=== PATIENT | female | born 1970 | race American Indian/Alaskan Native ===

== ENCOUNTER 2017-09-18 01:47 | Emergency (ER) | payer MEDICAID ==
[2017-09-18 03:41] LABS: Basophils # (Auto) 0.1 K/mm3 (0.0-0.1); Basophils % (Auto) 0.7 % (0.0-1.8); Eosinophils # (Auto) 0.1 K/mm3 (0.0-0.4); Eosinophils % (Auto) 1.4 % (0.0-4.3); Hematocrit 39.9 % (30.3-42.9); Hemoglobin 13.6 gm/dl (10.1-14.3); Lymphocytes # (Auto) 2.9 K/mm3 (1.2-5.4); Lymphocytes % (Auto) 29.9 % (13.4-35.0); Mean Corpuscular HGB Conc 34 % (30-34); Mean Corpuscular Hemoglobin 32 pg (28-32); Mean Corpuscular Volume 95 fl (79-97); Monocytes % (Auto) 9.9 % (0.0-7.3); Platelet Count 253 K/mm3 (140-440); Red Blood Count 4.22 M/mm3 (3.65-5.03); Red Cell Distribution Width 15.4 % (13.2-15.2)
[2017-09-18 04:02] LABS: Alanine Aminotransferase 51 units/L (7-56); Albumin 4.3 g/dL (3.9-5); BUN/Creatinine Ratio 19; Blood Urea Nitrogen 13 mg/dL (7-17); Calcium 10.8 mg/dL (8.4-10.2); Hemolysis Index 7
--- NOTE | 2017-09-18 06:09 | Emergency Department Report ---
ED General Adult HPI - General Chief complaint: Pain General Stated complaint: NOSE PAIN AND LIGHT HEADED Time Seen by Provider: 09/18/17 06:04 Source: patient Mode of arrival: Ambulatory Limitations: No Limitations - History of Present Illness Initial comments: 47-year-old -[place] female presents to the emergency room for complaint of nose pain 11/07. She reports that she has swelling in the inside of her nose since . She reports she's had lightheadedness since yesterday. Patient denies any injury to the nose denies any nosebleeds. Patient does report that she has difficulty breathing out of one nostril and then it would switch off to the other nostril. Patient has a history of diabetes hypertension depression. Her primary care doctor is Dr. Rene. Patient has not tried any [id number] medications for relief. SHe does admit to headache is located in the frontal between her eyebrows. -: days(s) (3) Location: head Severity scale (0 -10): 9 Quality: stabbing, aching, sharp Consistency: constant Improves with: none Worsens with: none Associated Symptoms: headaches, other (call to breathe through her nose) Treatments Prior to Arrival: none - Related Data Previous Rx's Medication Instructions Recorded Last Taken Type Cephalexin [Keflex] 500 mg PO Q12HR 10 Days #20 cap 09/18/17 Unknown Rx Fluticasone [Flonase] 1 spray NS QDAY #1 bottle 09/18/17 Unknown Rx Loratadine [Claritin] 10 mg PO DAILY #30 tablet 09/18/17 Unknown Rx Allergies Allergy/AdvReac Type Severity Reaction Status Date / Time No Known Allergies Allergy Verified 09/18/17 02:47 ED Review of Systems ROS: Stated complaint: NOSE PAIN AND LIGHT HEADED Other details as noted in HPI ENT: congestion, other (nose pain) Neurological: headache ED Past Medical Hx - Past Medical History Hx Hypertension: Yes Hx Diabetes: Yes Hx Arthritis: Yes Hx Psychiatric Treatment: Yes (depression) - Social History Smoking Status: Current Every Day Smoker Substance Use Type: None - Medications Home Medications: Home Medications Medication Instructions Recorded Confirmed Last Taken Type Cephalexin [Keflex] 500 mg PO Q12HR 10 Days #20 cap 09/18/17 Unknown Rx Fluticasone [Flonase] 1 spray NS QDAY #1 bottle 09/18/17 Unknown Rx Loratadine [Claritin] 10 mg PO DAILY #30 tablet 09/18/17 Unknown Rx ED Physical Exam - General Limitations: No Limitations General appearance: alert, in no apparent distress - Head Head exam: Present: atraumatic, normocephalic - ENT ENT exam: Present: normal orophraynx, mucous membranes moist, TM's normal bilaterally, other (bilateral nasal turbinates hypertrophic, maxillary tenderness) - Neck Neck exam: Present: full ROM. Absent: tenderness, lymphadenopathy ED Course Vital Signs 09/18/17 01:47 Temperature 98.7 F Pulse Rate 104 H Respiratory 18 Rate Blood Pressure 169/97 O2 Sat by Pulse 97 Oximetry ED Medical Decision Making - Lab Data Result diagrams: 09/18/17 03:20 09/18/17 03:20 - Medical Decision Making Patient has been evaluated by this provider fast track. Discussed the patient appears that she has a sinus infection. We'll treat patient with Keflex, Flonase and Claritin. If symptoms persist patient is to follow-up with her primary care provider. Critical care attestation.: If time is entered above; I have spent that time in minutes in the direct care of this critically ill patient, excluding procedure time. ED Disposition Clinical Impression: Sinusitis Qualifiers: Sinusitis location: maxillary Chronicity: acute Recurrence: non-recurrent Qualified Code(s): J01.00 - Acute maxillary sinusitis, unspecified Disposition: DC-01 TO HOME OR SELFCARE Is pt being admited?: No Does the pt Need Aspirin: No Condition: Stable Instructions: Sinusitis (ED) Additional Instructions: Complete antibiotics as prescribed. Take medication as prescribed. If your symptoms persist or gets worse. Follow-up with her primary care provider. Prescriptions: Cephalexin [Keflex] 500 mg PO Q12HR 10 Days #20 cap Fluticasone [Flonase] 1 spray NS QDAY #1 bottle Loratadine [Claritin] 10 mg PO DAILY #30 tablet Referrals: PRIMARY CARE, [Primary Care Provider] - 3-5 Days Ernestine Crouch [Other] - 3-5 Days
[2017-09-18 06:19] VITALS: BP 150/82
== END 2017-09-18 06:42 | disposition home or self-care (01) ==
LOC: ED 01:47
DX: J01.00 Acute maxillary sinusitis, unspecified (principal); I10 Essential (primary) hypertension; E11.9 Type 2 diabetes mellitus without complications; M19.90 Unspecified osteoarthritis, unspecified site; F32.9 Major depressive disorder, single episode, unspecified; F17.200 Nicotine dependence, unspecified, uncomplicated
CPT/HCPCS: 36415; 80053; 85025; 93005; 93010